=== PATIENT | female | born 1965 | race Caucasian/White ===

== ENCOUNTER 2016-09-04 20:24 | Emergency (ER) | payer MEDICARE ==
[2016-09-04 21:17] LABS: BASO % 0.2 % (0.1-1.2); EOS # 0.1 10_X3_uL (0.0-0.4); EOS % 1.2 % (0.7-5.8); GRAN # 4.1 10_X3_uL (1.6-6.1); GRAN % 61.9 % (34.0-71.1); HEMATOCRIT 38.2 % (34-45); HEMOGLOBIN 12.9 g/dL (11.2-15.7); LYMPH % 30.7 % (19.3-51.7); MEAN CORPUSCULAR HEMOGLOBIN 28.4 pg (27.0-33.0); MEAN CORPUSCULAR HGB CONC 33.8 g/dL (32.0-36.0); MEAN CORPUSCULAR VOLUME 84.1 fL (79-95); MEAN PLATELET VOLUME 9.8 fl (7.5-11.5); MONO # 0.4 10_X3_uL (0.2-0.9); PLATELET COUNT 269 x10_3/uL (182-369); RED BLOOD COUNT 4.54 x10_6/uL (3.9-5.2); RED CELL DISTRIBUTION WIDTH 12.2 % (11.7-14.4); WHITE BLOOD COUNT 6.7 x10_3/uL (4.0-10.0)
[2016-09-04 21:25] LABS: URINE BILIRUBIN NEGATIVE (NEGATIVE); URINE BLOOD NEGATIVE (NEGATIVE); URINE KETONE NEGATIVE (NEGATIVE); URINE LEUKOCYTE ESTERASE NEGATIVE (NEGATIVE); URINE NITRATE NEGATIVE (NEGATIVE); URINE PROTEIN NEGATIVE (NEGATIVE); UROBILINOGEN NORMAL mg/dL (<1.0)
[2016-09-04 21:26] LABS: URINE GLUCOSE (UA) 1000 mg/dL (NORMAL)
[2016-09-04 21:32] LABS: ALBUMIN 3.8 gm/dL (3.4-5.0); ALKALINE PHOSPHATASE 97 U/L (50-136); ALT/SGPT 14 U/L (3.5-33.9); AST/SGOT 12 U/L (7.04-26.96); BILIRUBIN,TOTAL 0.32 mg/dL (0.0-1.0); BLOOD UREA NITROGEN 9 mg/dL (7-18); CALCIUM 8.2 mg/dL (8.7-10.7); CARBON DIOXIDE 20 mmol/L (21-32); CREATINE KINASE 73 U/L (21-215); CREATININE 0.6 mg/dL (0.6-1.3); LIPASE 14 U/L (6.75-60.75); POTASSIUM 3.8 mmol/L (3.5-5.1); SODIUM 134 mmol/L (136-145); TOTAL PROTEIN 6.6 gm/dL (6.4-8.2)
[2016-09-04 21:40] LABS: GLUCOSE,RANDOM 497 mg/dL (70-99)
== END 2016-09-05 00:01 | disposition home or self-care (01) ==
LOC: ER 20:24
PROVIDERS: Emergency Medicine
DX: E11.65 Type 2 diabetes mellitus with hyperglycemia (principal); E11.40 Type 2 diabetes mellitus with diabetic neuropathy, unspecified; R12 Heartburn; R07.9 Chest pain, unspecified; F41.9 Anxiety disorder, unspecified; I10 Essential (primary) hypertension; J44.9 Chronic obstructive pulmonary disease, unspecified; Z95.5 Presence of coronary angioplasty implant and graft; Z90.710 Acquired absence of both cervix and uterus; Z79.4 Long term (current) use of insulin; Z79.899 Other long term (current) drug therapy; Z88.5 Allergy status to narcotic agent; Z88.6 Allergy status to analgesic agent
CPT/HCPCS: 36415; 71010; 80053; 80307; 81003; 82550; 82553; 82962; 83690; 85025; 93005; 96361; 96374; 99070; 99285-25

== ENCOUNTER 2016-09-23 22:53 | Observation (INO) | payer MEDICARE ==
[~2016-09-23] VITALS: Ht 165.1 cm; Wt 83.0 kg
[2016-09-23 23:17] LABS: URINE BACTERIA TRACE (NONE SEEN); URINE BILIRUBIN NEGATIVE (NEGATIVE); URINE BLOOD NEGATIVE (NEGATIVE); URINE GLUCOSE (UA) 1000 mg/dL (NORMAL); URINE KETONE NEGATIVE (NEGATIVE); URINE LEUKOCYTE ESTERASE TRACE (NEGATIVE); URINE NITRATE NEGATIVE (NEGATIVE); URINE PROTEIN NEGATIVE (NEGATIVE); URINE RBC RARE /[HPF] (0-2); URINE WBC 0-5 /[HPF] (0-5); UROBILINOGEN NORMAL mg/dL (<1.0)
[2016-09-23 23:37] LABS: BASO % 0.5 % (0.1-1.2); EOS # 0.2 10_X3_uL (0.0-0.4); EOS % 3.5 % (0.7-5.8); GRAN # 2.7 10_X3_uL (1.6-6.1); GRAN % 46.7 % (34.0-71.1); HEMATOCRIT 37.7 % (34-45); HEMOGLOBIN 13.4 g/dL (11.2-15.7); LYMPH # 2.6 10_X3_uL (1.2-3.7); LYMPH % 44.6 % (19.3-51.7); MEAN CORPUSCULAR HEMOGLOBIN 28.5 pg (27.0-33.0); MEAN CORPUSCULAR HGB CONC 35.5 g/dL (32.0-36.0); MONO # 0.3 10_X3_uL (0.2-0.9); MONO % 4.7 % (4.7-12.5); PLATELET COUNT 271 x10_3/uL (182-369); RED BLOOD COUNT 4.71 x10_6/uL (3.9-5.2); RED CELL DISTRIBUTION WIDTH 12.1 % (11.7-14.4); WHITE BLOOD COUNT 5.7 x10_3/uL (4.0-10.0)
[2016-09-23 23:50] LABS: ALBUMIN 3.6 gm/dL (3.4-5.0); ALKALINE PHOSPHATASE 172 U/L (50-136); ALT/SGPT 13 U/L (3.5-33.9); AST/SGOT 9 U/L (7.04-26.96); BLOOD UREA NITROGEN 13 mg/dL (7-18); CALCIUM 8.8 mg/dL (8.7-10.7); CARBON DIOXIDE 24 mmol/L (21-32); CREATINE KINASE 54 U/L (21-215); CREATININE 0.7 mg/dL (0.6-1.3); SODIUM 129 mmol/L (136-145); TOTAL PROTEIN 6.3 gm/dL (6.4-8.2)
[2016-09-23 23:57] LABS: POTASSIUM 3.9 mmol/L (3.5-5.1)
[2016-09-24 00:01] LABS: BILIRUBIN,TOTAL < 0.15 mg/dL (0.0-1.0); GLUCOSE,RANDOM 669 mg/dL (70-99)
[2016-09-24 06:38] LABS: CKMB 1.6 ng/ml (0.0-5.0)
[2016-09-24 06:42] LABS: AHDL CHOLESTEROL 26 mg/dL (>40); BLOOD UREA NITROGEN 10 mg/dL (7-18); CALCIUM 8.1 mg/dL (8.7-10.7); CARBON DIOXIDE 23 mmol/L (21-32); CHOLESTEROL 240 mg/dL (0-200); CREATININE 0.5 mg/dL (0.6-1.3); GLUCOSE,RANDOM 284 mg/dL (70-99); HEMATOCRIT 38.1 % (34-45); HEMOGLOBIN 13.1 g/dL (11.2-15.7); LDL CHOLESTEROL 81 mg/dL (0-99); MEAN CORPUSCULAR HEMOGLOBIN 27.8 pg (27.0-33.0); MEAN CORPUSCULAR HGB CONC 34.4 g/dL (32.0-36.0); MEAN CORPUSCULAR VOLUME 80.7 fL (79-95); MEAN PLATELET VOLUME 9.8 fl (7.5-11.5); POTASSIUM 3.4 mmol/L (3.5-5.1); RED BLOOD COUNT 4.72 x10_6/uL (3.9-5.2); RED CELL DISTRIBUTION WIDTH 12.1 % (11.7-14.4); SODIUM 136 mmol/L (136-145); TRIGLYCERIDES 871 mg/dL (30-200); WHITE BLOOD COUNT 6.3 x10_3/uL (4.0-10.0)
[2016-09-24 06:48] LABS: TROP-I < 0.30 NG/ML (0.00-0.30)
[2016-09-24 12:19] LABS: CKMB 1.5 ng/ml (0.0-5.0)
[2016-09-24 12:21] LABS: TROP-I < 0.30 NG/ML (0.00-0.30)
[2016-09-25 06:50] LABS: HEMATOCRIT 39.3 % (34-45); HEMOGLOBIN 13.6 g/dL (11.2-15.7); MEAN CORPUSCULAR HEMOGLOBIN 28.3 pg (27.0-33.0); MEAN CORPUSCULAR HGB CONC 34.6 g/dL (32.0-36.0); MEAN CORPUSCULAR VOLUME 81.7 fL (79-95); MEAN PLATELET VOLUME 10.1 fl (7.5-11.5); RED BLOOD COUNT 4.81 x10_6/uL (3.9-5.2); RED CELL DISTRIBUTION WIDTH 12.2 % (11.7-14.4); WHITE BLOOD COUNT 5.1 x10_3/uL (4.0-10.0)
[2016-09-25 07:12] LABS: ALBUMIN 2.8 gm/dL (3.4-5.0); ALKALINE PHOSPHATASE 94 U/L (50-136); ALT/SGPT 12 U/L (3.5-33.9); AST/SGOT 11 U/L (7.04-26.96); BLOOD UREA NITROGEN 14 mg/dL (7-18); CALCIUM 8.7 mg/dL (8.7-10.7); CARBON DIOXIDE 25 mmol/L (21-32); CREATININE < 0.5 mg/dL (0.6-1.3); GLUCOSE,RANDOM 195 mg/dL (70-99); MAGNESIUM 1.7 mg/dL (1.8-2.4); POTASSIUM 4.1 mmol/L (3.5-5.1); SODIUM 137 mmol/L (136-145); TOTAL PROTEIN 5.5 gm/dL (6.4-8.2)
== END 2016-09-25 14:00 | disposition home or self-care (01) ==
LOC: ER 22:53 → MS 09-24 01:20
PROVIDERS: Internal Medicine; ADMIT Family Medicine
DX: R07.9 Chest pain, unspecified (principal); E11.65 Type 2 diabetes mellitus with hyperglycemia; E78.5 Hyperlipidemia, unspecified; E87.6 Hypokalemia; E83.42 Hypomagnesemia; R11.2 Nausea with vomiting, unspecified; R20.0 Anesthesia of skin; R51 Headache; R10.13 Epigastric pain; M54.9 Dorsalgia, unspecified; Z79.4 Long term (current) use of insulin; Z79.02 Long term (current) use of antithrombotics/antiplatelets; Z79.899 Other long term (current) drug therapy; Z88.5 Allergy status to narcotic agent; Z88.8 Allergy status to other drugs, medicaments and biological substances
CPT/HCPCS: 36415; 70450; 71010; 80048; 80053; 80061; 81001; 82009; 82550; 82553; 82962; 83036; 83735; 85025; 93005; 93041; 96360; 96361; 96372; 99070; 99285-25; G0378; Q0169

== ENCOUNTER 2016-10-22 15:39 | Emergency (ER) | payer MEDICARE ==
[2016-10-22 16:21] LABS: URINE BILIRUBIN NEGATIVE (NEGATIVE); URINE BLOOD TRACE (NEGATIVE); URINE KETONE TRACE (NEGATIVE); URINE LEUKOCYTE ESTERASE NEGATIVE (NEGATIVE); URINE NITRATE NEGATIVE (NEGATIVE); URINE PROTEIN NEGATIVE (NEGATIVE); UROBILINOGEN NORMAL mg/dL (<1.0)
[2016-10-22 16:32] LABS: URINE BACTERIA FEW (NONE SEEN); URINE GLUCOSE (UA) 1000 mg/dL (NORMAL); URINE RBC 0-5 /[HPF] (0-2); URINE SQUAMOUS EPITHELIAL CELL 0-10 /[HPF] (NONE SEEN); URINE WBC 0-5 /[HPF] (0-5)
[2016-10-22 16:38] LABS: BASO % 0.3 % (0.1-1.2); EOS # 0.2 10_X3_uL (0.0-0.4); EOS % 3.5 % (0.7-5.8); GRAN # 3.3 10_X3_uL (1.6-6.1); GRAN % 54.4 % (34.0-71.1); HEMATOCRIT 37.9 % (34-45); HEMOGLOBIN 13.4 g/dL (11.2-15.7); LYMPH # 2.2 10_X3_uL (1.2-3.7); LYMPH % 36.3 % (19.3-51.7); MEAN CORPUSCULAR HEMOGLOBIN 28.2 pg (27.0-33.0); MEAN CORPUSCULAR HGB CONC 35.4 g/dL (32.0-36.0); MEAN CORPUSCULAR VOLUME 79.8 fL (79-95); MEAN PLATELET VOLUME 9.8 fl (7.5-11.5); MONO # 0.3 10_X3_uL (0.2-0.9); MONO % 5.5 % (4.7-12.5); PLATELET COUNT 255 x10_3/uL (182-369); RED BLOOD COUNT 4.75 x10_6/uL (3.9-5.2); RED CELL DISTRIBUTION WIDTH 12.5 % (11.7-14.4)
[2016-10-22 16:55] LABS: ALBUMIN 3.9 gm/dL (3.4-5.0); ALKALINE PHOSPHATASE 135 U/L (50-136); ALT/SGPT 16 U/L (3.5-33.9); AST/SGOT 12 U/L (7.04-26.96); BILIRUBIN,TOTAL 0.26 mg/dL (0.0-1.0); BLOOD UREA NITROGEN 13 mg/dL (7-18); CARBON DIOXIDE 25 mmol/L (21-32); CREATINE KINASE 73 U/L (21-215); CREATININE 0.6 mg/dL (0.6-1.3); LIPASE 25 U/L (6.75-60.75); POTASSIUM 4.5 mmol/L (3.5-5.1); SODIUM 132 mmol/L (136-145); TOTAL PROTEIN 6.7 gm/dL (6.4-8.2)
[2016-10-22 17:08] LABS: GLUCOSE,RANDOM 631 mg/dL (70-99)
== END 2016-10-22 20:13 | disposition home or self-care (01) ==
LOC: ER 15:39
PROVIDERS: Internal Medicine
DX: R07.9 Chest pain, unspecified (principal); E11.65 Type 2 diabetes mellitus with hyperglycemia; I51.9 Heart disease, unspecified; Z90.49 Acquired absence of other specified parts of digestive tract; Z90.710 Acquired absence of both cervix and uterus; Z88.6 Allergy status to analgesic agent; Z88.1 Allergy status to other antibiotic agents; Z88.8 Allergy status to other drugs, medicaments and biological substances; Z79.899 Other long term (current) drug therapy; Z79.4 Long term (current) use of insulin; Z79.02 Long term (current) use of antithrombotics/antiplatelets
CPT/HCPCS: 36415; 70450; 80053; 81001; 82550; 82553; 82962; 83690; 85025; 93005; 96361; 96374; 99070; 99285-25

== ENCOUNTER 2016-11-08 17:06 | Emergency (ER) | payer SELFPAY | END 2016-11-08 19:55 | disposition left against medical advice (07) | LOC: ER 17:06 | DX: Z53.21 Procedure and treatment not carried out due to patient leaving prior to being seen by health care provider (principal) | CPT/HCPCS: 99211 ==

== ENCOUNTER 2016-11-09 07:20 | Emergency (ER) | payer MEDICARE | END 2016-11-09 09:27 | disposition home or self-care (01) | LOC: ER 07:20 | DX: S60.511A Abrasion of right hand, initial encounter (principal); S80.212A Abrasion, left knee, initial encounter; S00.81XA Abrasion of other part of head, initial encounter; S80.02XA Contusion of left knee, initial encounter; S13.4XXA Sprain of ligaments of cervical spine, initial encounter; S33.5XXA Sprain of ligaments of lumbar spine, initial encounter; S23.3XXA Sprain of ligaments of thoracic spine, initial encounter; W01.0XXA Fall on same level from slipping, tripping and stumbling without subsequent striking against object, initial encounter; Y92.512 Supermarket, store or market as the place of occurrence of the external cause; J06.9 Acute upper respiratory infection, unspecified; I10 Essential (primary) hypertension; E11.9 Type 2 diabetes mellitus without complications; Z88.8 Allergy status to other drugs, medicaments and biological substances; Z79.4 Long term (current) use of insulin; Z79.899 Other long term (current) drug therapy | CPT/HCPCS: 72125; 72128; 72131; 73130; 73564; 96372; 99070; 99284; 99284-25 ==